=== PATIENT | male | born 1950 | race Caucasian/White ===

== ENCOUNTER 2021-01-19 08:33 | Inpatient (IN) | payer MEDICARE, OTHER ==
[2021-01-19] MEDS ORDERED: Heparin 5,000 UNITS/ML VIAL ONE (09:13)
[2021-01-19] MEDS ORDERED: TICAGRELOR 90 MG TABLET PO SCH (09:30)
[2021-01-19 10:43] VITALS: BMI 29.2
[2021-01-19] MEDS ORDERED: Nitroglycerin 50 MG/250 ML BOT 0 ML ONE (10:54)
[2021-01-19] MEDS ORDERED: Heparin 10,000 UNITS/ 10 ML VIAL ONE ×2 (10:54→13:31)
[2021-01-19] MEDS ORDERED: Adenosine 6 MG/2 ML VIAL ONE (10:55)
[2021-01-19] MEDS ORDERED: Lidocaine 1% (PF) 30 ML VIAL ONE (10:56)
[2021-01-19] MEDS ORDERED: Morphine 4 MG/ML VIAL SLOW IVP SCH (11:00)
[2021-01-19 11:27] LABS: SARS-CoV-2 NAA Rapid Test Not Detected (NotDetected)
[2021-01-19 11:40] LABS: CKMB 172.8 ng/mL (0-6.6)
[2021-01-19] MEDS ORDERED: Fentanyl 100 MCG/2 ML VIAL ONE (12:41)
[2021-01-19] MEDS ORDERED: Midazolam HCl 2 mg/2 ml Vial ONE ×2 (12:42→12:56)
[2021-01-19] MEDS ORDERED: Nitroglycerin 0.4 MG TAB (25 Tab Bottle) SL PRN (12:48)
[2021-01-19] MEDS ORDERED: Senokot S 8.6-50 MG TAB PO PRN (12:48)
[2021-01-19] MEDS ORDERED: Sodium Chloride 0.9% 1,000 ML IV SCH (13:00)
[2021-01-19] MEDS ORDERED: Morphine 4 MG/ML VIAL ONE ×3 (13:01→13:28)
[2021-01-19] MEDS ORDERED: Ondansetron PF 4 MG/2 ML Vial ONE (13:16)
[2021-01-19] MEDS ORDERED: Protamine Sulfate 50 MG/5 ML VIAL ONE (13:50)
[2021-01-19] MEDS: HYDROcodone/Acetaminophen 5/325 mg Tablet PO PRN ×2 (14:14→20:28)
[2021-01-19] MEDS ORDERED: cloNIDine 0.1 MG TAB PO PRN (14:21)
[2021-01-19] MEDS: Sodium Chloride 0.9% 1,000 ML IV SCH (14:57)
[2021-01-19] MEDS ORDERED: Atenolol 25 MG TAB PO SCH (15:00)
[2021-01-19] MEDS: Ondansetron PF 4 MG/2 ML Vial IVP PRN (17:12)
[2021-01-19] MEDS: Morphine 4 MG/ML VIAL SLOW IVP PRN ×2 (17:34→21:20)
[2021-01-19] MEDS: TICAGRELOR 90 MG TABLET PO SCH (21:18)
[2021-01-19] MEDS: Atorvastatin Calcium 40 MG TAB PO SCH (21:19)
[2021-01-19] MEDS: Famotidine/PF 20 mg/2ml Vial SLOW IVP SCH (21:20)
[2021-01-20] MEDS: Sodium Chloride 0.9% 1,000 ML IV SCH (00:10)
[2021-01-20] MEDS ORDERED: Fentanyl 100 MCG/2 ML VIAL SLOW IVP SCH (00:15)
[2021-01-20] MEDS ORDERED: HumaLOG 300 UNITS/3 ML VIAL SC SCH (01:15)
[2021-01-20 03:06] LABS: #Eosinphils 0.1 10x3/uL (0.0-0.5); #Monocytes 1.1 10x3/uL (0.0-1.1); #Neutrophils 11.2 10x3/uL (1.5-8.4); %Basophils 0.3 % (0.0-2.0); %Eosinophils 0.4 % (0.0-6.0); %Lymphocytes 7.9 % (18.0-47.0); %Monocytes 8.1 % (0.0-10.0); %Neutrophils 82.4 % (40.0-75.0); Hemoglobin 12.1 g/dL (13.5-17.5); Mean Corpuscular HGB CONC 34.3 g/dL (32.0-36.0); Mean Corpuscular Hemoglobin 29.7 pg (27.0-33.0); Mean Corpuscular Volume 86.5 fl (81.2-95.1); Mean Platelet Volume 12.6 fl (7.4-10.4); Platelet Count 119 10x3/uL (150-450); RBC Distribution Width 14.2 % (11.5-14.5); Red Blood Cell (RBC) Count 4.08 10x6/uL (4.32-5.72); White Blood Cell (WBC) Count 13.6 10x3/uL (3.5-10.5)
[2021-01-20] MEDS: HYDROcodone/Acetaminophen 5/325 mg Tablet PO PRN ×3 (03:06→19:15)
[2021-01-20] MEDS: Ondansetron PF 4 MG/2 ML Vial IVP PRN ×2 (03:13→13:31)
[2021-01-20 03:21] LABS: ALT (SGPT) 48 U/L (8-55); AST (SGOT) 213 U/L (5-34); Albumin 3.3 g/dL (3.4-4.8); Alkaline Phosphatase 50 U/L (40-110); Anion Gap 15 mmol/L (10-20); BUN (Urea Nitrogen) 21 mg/dL (8.4-25.7); Calc. Creatinine Clearance 69 mL/min (70-130); Calcium 8.2 mg/dL (7.8-10.44); Carbon Dioxide 22 mmol/L (23-31); Chloride 102 mmol/L (98-107); Globulin 2.5 g/dL (2.4-3.5); Glucose 155 mg/dL (80-115); Potassium 4.8 mmol/L (3.5-5.1); Protein, Total 5.8 g/dL (5.8-8.1); Sodium 134 mmol/L (136-145)
[2021-01-20] MEDS: Morphine 4 MG/ML VIAL SLOW IVP PRN ×5 (04:10→23:47)
[2021-01-20] MEDS ORDERED: HYDROmorphone 0.5 MG/0.5 ML SYRINGE SLOW IVP SCH (04:45)
[2021-01-20] MEDS ORDERED: Furosemide 40 MG/4 ML VIAL SLOW IVP SCH ×2 (05:15→16:45)
[2021-01-20] MEDS ORDERED: Amiodarone In Dextrose 200 ML IVPB SCH (06:00)
[2021-01-20] MEDS ORDERED: Amiodarone 150 MG in Dextrose 5% in Water 100 ML IVPB SCH (06:00)
[2021-01-20] MEDS: Aspirin Chewable 81 MG TAB PO SCH (07:59)
[2021-01-20] MEDS: TICAGRELOR 90 MG TABLET PO SCH ×2 (07:59→22:22)
[2021-01-20] MEDS: ALPRAZolam 0.5 MG TAB PO PRN ×3 (07:59→23:50)
[2021-01-20] MEDS: Famotidine/PF 20 mg/2ml Vial SLOW IVP SCH ×2 (07:59→22:22)
[2021-01-20] MEDS: Lisinopril 5 MG TAB PO SCH (10:16)
[2021-01-20] MEDS: Atenolol 25 MG TAB PO SCH ×2 (10:17→18:03)
[2021-01-20 14:40] LABS: Actual Bicarbonate (HCO3v) 20 mEq/L (22-28); Base Excess -4.6 mEq/L (-2.0 to +3.0); Calcium, Ionized (venous) 1.03 mmol/L (1.16-1.32); Chloride (VBG) 99 mmol/L (98-106); Potassium (VBG) 4.09 mmol/L (3.70-5.30); Sodium 126.1 mmol/L (133-146); pH (venous) 7.37 (7.32-7.43)
[2021-01-20] MEDS ORDERED: Haloperidol Lactate 5 MG/ML VIAL SLOW IVP PRN ×2 (14:47→16:40)
[2021-01-20] MEDS ORDERED: Sterile Water 10 ML VIAL FS PRN (17:32)
[2021-01-20] MEDS: Ziprasidone 20 MG VIAL IM PRN ×2 (17:47→22:25)
[2021-01-20] MEDS ORDERED: Atenolol 25 MG TAB PO SCH (18:15)
[2021-01-20] MEDS: Mirtazapine 15 MG TAB PO SCH (22:22)
[2021-01-20] MEDS: Atorvastatin Calcium 40 MG TAB PO SCH (22:22)
[2021-01-20] MEDS: Amiodarone 200 MG TAB PO SCH (22:22)
[2021-01-21] MEDS: HYDROcodone/Acetaminophen 5/325 mg Tablet PO PRN (02:13)
[2021-01-21] MEDS: Ziprasidone 20 MG VIAL IM PRN ×5 (03:49→14:30)
[2021-01-21 05:32] LABS: #Monocytes 0.7 10x3/uL (0.0-1.1); #Neutrophils 10.5 10x3/uL (1.5-8.4); %Basophils 0.2 % (0.0-2.0); %Eosinophils 0.1 % (0.0-6.0); %Lymphocytes 6.2 % (18.0-47.0); %Monocytes 5.9 % (0.0-10.0); %Neutrophils 86.8 % (40.0-75.0); Hemoglobin 12.1 g/dL (13.5-17.5); Mean Corpuscular HGB CONC 35.1 g/dL (32.0-36.0); Mean Corpuscular Hemoglobin 29.1 pg (27.0-33.0); Mean Corpuscular Volume 82.9 fl (81.2-95.1); Mean Platelet Volume 13.2 fl (7.4-10.4); Platelet Count 119 10x3/uL (150-450); RBC Distribution Width 13.8 % (11.5-14.5); Red Blood Cell (RBC) Count 4.16 10x6/uL (4.32-5.72); White Blood Cell (WBC) Count 12.1 10x3/uL (3.5-10.5)
[2021-01-21] MEDS: Morphine 4 MG/ML VIAL SLOW IVP PRN ×2 (05:32→12:19)
[2021-01-21 05:46] LABS: Anion Gap 18 mmol/L (10-20); BUN (Urea Nitrogen) 25 mg/dL (8.4-25.7); Calc. Creatinine Clearance 67 mL/min (70-130); Calcium 9.1 mg/dL (7.8-10.44); Carbon Dioxide 20 mmol/L (23-31); Chloride 102 mmol/L (98-107); Glucose 211 mg/dL (80-115); Sodium 136 mmol/L (136-145)
[2021-01-21] MEDS: TICAGRELOR 90 MG TABLET PO SCH ×2 (09:23→21:36)
[2021-01-21] MEDS: Amiodarone 200 MG TAB PO SCH ×2 (09:23→21:02)
[2021-01-21] MEDS: Famotidine/PF 20 mg/2ml Vial SLOW IVP SCH ×2 (09:23→21:03)
[2021-01-21] MEDS: Atenolol 25 MG TAB PO SCH (09:24)
[2021-01-21] MEDS: Lisinopril 5 MG TAB PO SCH (09:24)
[2021-01-21] MEDS: Aspirin Chewable 81 MG TAB PO SCH (09:24)
[2021-01-21 12:07] LABS: Puncture Site RRA
[2021-01-21] MEDS: Acetaminophen 325 MG TAB PO PRN (12:20)
[2021-01-21] MEDS: ALPRAZolam 0.5 MG TAB PO PRN ×2 (14:08→19:56)
[2021-01-21] MEDS ORDERED: Piperacillin/Tazobactam 3.375 GM in Sodium Chloride 0.9% 100 ML IVPB SCH ×2 (17:00→18:00)
[2021-01-21] MEDS ORDERED: VANCOMYCIN 2 GRAM/400 ML BAG 2 GM in Premix Bag 1 BAG IVPB SCH (19:30)
[2021-01-21] MEDS ORDERED: Vancomycin 1 GM in Premix Bag 1 BAG IVPB SCH (21:00)
[2021-01-21] MEDS: Atorvastatin Calcium 40 MG TAB PO SCH (21:03)
[2021-01-21] MEDS: Mirtazapine 15 MG TAB PO SCH (21:05)
[2021-01-21] MEDS: Piperacillin/Tazobactam 3.375 GM in Sodium Chloride 0.9% 100 ML IVPB SCH (21:57)
[2021-01-22] MEDS: Morphine 4 MG/ML VIAL SLOW IVP PRN (02:37)
[2021-01-22 05:14] LABS: #Monocytes 0.9 10x3/uL (0.0-1.1); #Neutrophils 8.7 10x3/uL (1.5-8.4); %Basophils 0.2 % (0.0-2.0); %Eosinophils 0.4 % (0.0-6.0); %Lymphocytes 4.2 % (18.0-47.0); %Monocytes 8.9 % (0.0-10.0); %Neutrophils 85.4 % (40.0-75.0); Hemoglobin 11.9 g/dL (13.5-17.5); Mean Corpuscular HGB CONC 34.8 g/dL (32.0-36.0); Mean Corpuscular Hemoglobin 29.5 pg (27.0-33.0); Mean Corpuscular Volume 84.7 fl (81.2-95.1); Mean Platelet Volume 13.2 fl (7.4-10.4); Platelet Count 138 10x3/uL (150-450); RBC Distribution Width 13.8 % (11.5-14.5); Red Blood Cell (RBC) Count 4.04 10x6/uL (4.32-5.72); White Blood Cell (WBC) Count 10.1 10x3/uL (3.5-10.5)
[2021-01-22] MEDS: Piperacillin/Tazobactam 3.375 GM in Sodium Chloride 0.9% 100 ML IVPB SCH ×3 (05:14→21:30)
[2021-01-22 05:35] LABS: ALT (SGPT) 36 U/L (8-55); AST (SGOT) 69 U/L (5-34); Albumin 3.1 g/dL (3.4-4.8); Alkaline Phosphatase 53 U/L (40-110); Anion Gap 16 mmol/L (10-20); BUN (Urea Nitrogen) 23 mg/dL (8.4-25.7); Bilirubin, Total 1.6 mg/dL (0.2-1.2); Calc. Creatinine Clearance 75 mL/min (70-130); Calcium 9.1 mg/dL (7.8-10.44); Carbon Dioxide 22 mmol/L (23-31); Chloride 106 mmol/L (98-107); Globulin 2.9 g/dL (2.4-3.5); Glucose 189 mg/dL (80-115); Potassium 4.4 mmol/L (3.5-5.1); Sodium 140 mmol/L (136-145)
[2021-01-22] MEDS: Ziprasidone 20 MG VIAL IM PRN (05:56)
[2021-01-22] MEDS: ALPRAZolam 0.5 MG TAB PO PRN ×2 (05:59→11:50)
[2021-01-22] MEDS: Lisinopril 5 MG TAB PO SCH (09:35)
[2021-01-22] MEDS: Aspirin Chewable 81 MG TAB PO SCH (09:36)
[2021-01-22] MEDS: Amiodarone 200 MG TAB PO SCH ×2 (09:36→21:30)
[2021-01-22] MEDS: TICAGRELOR 90 MG TABLET PO SCH ×2 (09:36→22:45)
[2021-01-22] MEDS: Atenolol 25 MG TAB PO SCH (09:36)
[2021-01-22] MEDS: Famotidine/PF 20 mg/2ml Vial SLOW IVP SCH ×2 (09:36→21:30)
[2021-01-22] MEDS ORDERED: Carvedilol 3.125 MG TAB PO SCH (11:15)
[2021-01-22] MEDS: Vancomycin 1.5 GRAM/300 ML BAG 1.5 GM in Premix Bag 1 BAG IVPB SCH (12:29)
[2021-01-22] MEDS ORDERED: Lorazepam 2 MG/ML VIAL SLOW IVP PRN (12:45)
[2021-01-22] MEDS ORDERED: Morphine 4 MG/ML VIAL SLOW IVP PRN (12:46)
[2021-01-22] MEDS ORDERED: Melatonin 3 MG TAB PO PRN (17:01)
[2021-01-22] MEDS: Carvedilol 3.125 MG TAB PO SCH (19:43)
[2021-01-22] MEDS: Atorvastatin Calcium 40 MG TAB PO SCH (21:30)
[2021-01-22] MEDS: Enoxaparin Sodium 40 MG/0.4 ML SYRINGE SC SCH (22:31)
[2021-01-23] MEDS: Piperacillin/Tazobactam 3.375 GM in Sodium Chloride 0.9% 100 ML IVPB SCH ×3 (07:30→23:49)
[2021-01-23 09:10] LABS: Anion Gap 19 mmol/L (10-20); BUN (Urea Nitrogen) 29 mg/dL (8.4-25.7); Calc. Creatinine Clearance 79 mL/min (70-130); Calcium 8.9 mg/dL (7.8-10.44); Carbon Dioxide 16 mmol/L (23-31); Chloride 111 mmol/L (98-107); Glucose 178 mg/dL (80-115); Potassium 4.1 mmol/L (3.5-5.1); Sodium 142 mmol/L (136-145)
[2021-01-23 09:15] LABS: #Eosinphils 0.3 10x3/uL (0.0-0.5); #Monocytes 0.8 10x3/uL (0.0-1.1); #Neutrophils 5.5 10x3/uL (1.5-8.4); %Basophils 0.3 % (0.0-2.0); %Eosinophils 4.4 % (0.0-6.0); %Lymphocytes 7.9 % (18.0-47.0); %Monocytes 10.8 % (0.0-10.0); %Neutrophils 75.8 % (40.0-75.0); Hemoglobin 11.2 g/dL (13.5-17.5); Mean Corpuscular HGB CONC 34.9 g/dL (32.0-36.0); Mean Corpuscular Hemoglobin 29.2 pg (27.0-33.0); Mean Corpuscular Volume 83.6 fl (81.2-95.1); Mean Platelet Volume 12.8 fl (7.4-10.4); Platelet Count 158 10x3/uL (150-450); RBC Distribution Width 14.1 % (11.5-14.5); Red Blood Cell (RBC) Count 3.84 10x6/uL (4.32-5.72); White Blood Cell (WBC) Count 7.3 10x3/uL (3.5-10.5)
[2021-01-23] MEDS: Famotidine/PF 20 mg/2ml Vial SLOW IVP SCH (09:45)
[2021-01-23] MEDS: TICAGRELOR 90 MG TABLET PO SCH ×2 (09:46→23:50)
[2021-01-23] MEDS: Aspirin Chewable 81 MG TAB PO SCH (09:46)
[2021-01-23] MEDS: Vancomycin 1.5 GRAM/300 ML BAG 1.5 GM in Premix Bag 1 BAG IVPB SCH (09:49)
[2021-01-23] MEDS: Carvedilol 3.125 MG TAB PO SCH (09:53)
[2021-01-23] MEDS: Amiodarone 200 MG TAB PO SCH ×2 (09:56→23:43)
[2021-01-23] MEDS: Atenolol 25 MG TAB PO SCH (09:56)
[2021-01-23] MEDS: Lisinopril 5 MG TAB PO SCH (09:57)
[2021-01-23] MEDS ORDERED: ALPRAZolam 0.25 MG TAB PO PRN (16:13)
[2021-01-23] MEDS: Enoxaparin Sodium 40 MG/0.4 ML SYRINGE SC SCH (23:37)
[2021-01-23] MEDS: Atorvastatin Calcium 40 MG TAB PO SCH (23:43)
[2021-01-24 00:51] LABS: #Eosinphils 0.3 10x3/uL (0.0-0.5); #Monocytes 0.5 10x3/uL (0.0-1.1); #Neutrophils 4.6 10x3/uL (1.5-8.4); %Basophils 0.3 % (0.0-2.0); %Lymphocytes 9.8 % (18.0-47.0); %Monocytes 8.8 % (0.0-10.0); %Neutrophils 75.1 % (40.0-75.0); Hemoglobin 11.2 g/dL (13.5-17.5); Mean Corpuscular HGB CONC 34.8 g/dL (32.0-36.0); Mean Corpuscular Hemoglobin 29.1 pg (27.0-33.0); Mean Corpuscular Volume 83.6 fl (81.2-95.1); Mean Platelet Volume 11.8 fl (7.4-10.4); Platelet Count 182 10x3/uL (150-450); RBC Distribution Width 14.2 % (11.5-14.5); Red Blood Cell (RBC) Count 3.85 10x6/uL (4.32-5.72); White Blood Cell (WBC) Count 6.1 10x3/uL (3.5-10.5)
[2021-01-24 01:02] LABS: Vancomycin, Trough 12.8 ug/mL
[2021-01-24 01:11] LABS: Anion Gap 16 mmol/L (10-20); BUN (Urea Nitrogen) 27 mg/dL (8.4-25.7); Calc. Creatinine Clearance 75 mL/min (70-130); Calcium 8.6 mg/dL (7.8-10.44); Carbon Dioxide 20 mmol/L (23-31); Chloride 110 mmol/L (98-107); Glucose 209 mg/dL (80-115); Potassium 3.5 mmol/L (3.5-5.1); Sodium 142 mmol/L (136-145)
[2021-01-24] MEDS: Piperacillin/Tazobactam 3.375 GM in Sodium Chloride 0.9% 100 ML IVPB SCH ×3 (05:00→20:53)
[2021-01-24] MEDS: Acetaminophen 325 MG TAB PO PRN ×3 (05:58→15:47)
[2021-01-24] MEDS ORDERED: Morphine 2 MG/ML VIAL SLOW IVP PRN (07:15)
[2021-01-24] MEDS: Lisinopril 5 MG TAB PO SCH (08:32)
[2021-01-24] MEDS: Atenolol 25 MG TAB PO SCH (08:32)
[2021-01-24] MEDS: TICAGRELOR 90 MG TABLET PO SCH ×2 (08:32→20:53)
[2021-01-24] MEDS: Aspirin Chewable 81 MG TAB PO SCH (08:32)
[2021-01-24] MEDS: Amiodarone 200 MG TAB PO SCH ×2 (08:32→20:52)
[2021-01-24] MEDS: HYDROcodone/Acetaminophen 5/325 mg Tablet PO PRN ×2 (13:34→17:36)
[2021-01-24 13:54] LABS: CKMB 3.6 ng/mL (0-6.6)
[2021-01-24] MEDS: Enoxaparin Sodium 40 MG/0.4 ML SYRINGE SC SCH (20:52)
[2021-01-24] MEDS: Atorvastatin Calcium 40 MG TAB PO SCH (20:52)
[2021-01-24] MEDS ORDERED: Dextrose 5% in Water 1,000 ML IV PRN (21:15)
[2021-01-24] MEDS ORDERED: Dextrose 50% Abboject 50 ML SYRINGE IVP PRN (21:15)
[2021-01-24] MEDS: HumaLOG 300 UNITS/3 ML VIAL SC PRN (21:57)
[2021-01-25] MEDS: Acetaminophen 325 MG TAB PO PRN ×2 (04:00→11:40)
[2021-01-25] MEDS: Piperacillin/Tazobactam 3.375 GM in Sodium Chloride 0.9% 100 ML IVPB SCH ×3 (05:00→22:00)
[2021-01-25] MEDS ORDERED: traMADol HCl 50 MG TAB PO SCH (06:15)
[2021-01-25 06:36] LABS: Bilirubin 1+ (Negative); Blood, Urine Negative (Negative); Clarity Clear (Clear); Glucose, Urine (Dipstick) 250 mg/dL (Negative); Ketone, Urine 5 mg/dL (Negative); Leukocyte Negative (Negative); Nitrite Negative (Negative); Protein, Urine (Dipstick) 30 mg/dl (Neg-Trace); Specific Gravity, Urine 1.015 (1.002-1.036); Urobilinogen 12 mg/dL (Less than 2); pH, Urine 6.5 (5.0-9.0)
[2021-01-25 06:53] LABS: Bacteria/HPF None Seen HPF (None Seen); RBC/HPF 0-3 HPF (0-3); Squamous Epithelial None Seen HPF (0-3); WBC/HPF 0-3 HPF (0-3)
[2021-01-25 06:55] LABS: Urine Culture Reflex No No
[2021-01-25] MEDS: Aspirin Chewable 81 MG TAB PO SCH (08:30)
[2021-01-25] MEDS: Atenolol 25 MG TAB PO SCH (08:30)
[2021-01-25] MEDS: Lisinopril 5 MG TAB PO SCH (08:30)
[2021-01-25] MEDS: TICAGRELOR 90 MG TABLET PO SCH ×2 (08:31→22:20)
[2021-01-25] MEDS: Amiodarone 200 MG TAB PO SCH ×2 (08:31→22:00)
[2021-01-25] MEDS: HYDROcodone/Acetaminophen 5/325 mg Tablet PO PRN ×2 (10:02→15:05)
[2021-01-25] MEDS: HumaLOG 300 UNITS/3 ML VIAL SC PRN ×2 (12:20→17:23)
[2021-01-25] MEDS: Atorvastatin Calcium 40 MG TAB PO SCH (22:00)
[2021-01-25] MEDS: Enoxaparin Sodium 40 MG/0.4 ML SYRINGE SC SCH (22:00)
[2021-01-26] MEDS: Acetaminophen 325 MG TAB PO PRN (01:20)
[2021-01-26] MEDS: metFORMIN 500 MG TAB PO SCH ×2 (08:17→17:19)
[2021-01-26] MEDS: Lisinopril 5 MG TAB PO SCH (08:17)
[2021-01-26] MEDS: glipiZIDE 5 MG TAB PO SCH ×2 (08:17→17:19)
[2021-01-26] MEDS: Atenolol 25 MG TAB PO SCH (08:17)
[2021-01-26] MEDS: Amiodarone 200 MG TAB PO SCH ×2 (08:17→21:00)
[2021-01-26] MEDS: Aspirin Chewable 81 MG TAB PO SCH (08:18)
[2021-01-26] MEDS: Escitalopram Oxalate 10 mg Tablet PO SCH (08:18)
[2021-01-26] MEDS: TICAGRELOR 90 MG TABLET PO SCH ×2 (08:18→21:00)
[2021-01-26] MEDS: HYDROcodone/Acetaminophen 5/325 mg Tablet PO PRN (09:17)
[2021-01-26] MEDS: HumaLOG 300 UNITS/3 ML VIAL SC PRN (11:07)
[2021-01-26] MEDS: Atorvastatin Calcium 40 MG TAB PO SCH (21:00)
[2021-01-26] MEDS: Enoxaparin Sodium 40 MG/0.4 ML SYRINGE SC SCH (21:00)
[2021-01-27 07:32] VITALS: BP 146/82; TEMP 97.6
[2021-01-27] MEDS: Amiodarone 200 MG TAB PO SCH (08:45)
[2021-01-27] MEDS: Escitalopram Oxalate 10 mg Tablet PO SCH (08:45)
[2021-01-27] MEDS: metFORMIN 500 MG TAB PO SCH (08:45)
[2021-01-27] MEDS: Aspirin Chewable 81 MG TAB PO SCH (08:46)
[2021-01-27] MEDS: TICAGRELOR 90 MG TABLET PO SCH (08:46)
[2021-01-27] MEDS: HYDROcodone/Acetaminophen 5/325 mg Tablet PO PRN (08:46)
[2021-01-27] MEDS: Atenolol 25 MG TAB PO SCH (08:46)
[2021-01-27] MEDS: glipiZIDE 5 MG TAB PO SCH (08:46)
[2021-01-27] MEDS: Lisinopril 5 MG TAB PO SCH (08:46)
== END 2021-01-27 10:32 | disposition home or self-care (01) | DRG 246 ==
LOC: SUATTDRO 08:33 → CSHERS 08:33 → CSHIMCU 10:10 → CSHTELE 01-20 18:23
PROVIDERS: ADMIT Emergency Medicine; ATTEND Internal Medicine
PROC: 4A023N7 Measurement of Cardiac Sampling and Pressure, Left Heart, Percutaneous Approach (ICD-10-PCS; principal; 2021-01-19)
PROC: 027034Z Dilation of Coronary Artery, One Artery with Drug-eluting Intraluminal Device, Percutaneous Approach (ICD-10-PCS; 2021-01-19)
PROC: B2151ZZ Fluoroscopy of Left Heart using Low Osmolar Contrast (ICD-10-PCS; 2021-01-19)
PROC: B2111ZZ Fluoroscopy of Multiple Coronary Arteries using Low Osmolar Contrast (ICD-10-PCS; 2021-01-19)
DX: I97.191 Other postprocedural cardiac functional disturbances following other surgery (principal); I21.19 ST elevation (STEMI) myocardial infarction involving other coronary artery of inferior wall; I50.22 Chronic systolic (congestive) heart failure; I13.0 Hypertensive heart and chronic kidney disease with heart failure and stage 1 through stage 4 chronic kidney disease, or unspecified chronic kidney disease; G93.40 Encephalopathy, unspecified; I25.10 Atherosclerotic heart disease of native coronary artery without angina pectoris; Z95.5 Presence of coronary angioplasty implant and graft; Z96.641 Presence of right artificial hip joint; Z91.018 Allergy to other foods; Z88.8 Allergy status to other drugs, medicaments and biological substances; Z91.048 Other nonmedicinal substance allergy status; E78.2 Mixed hyperlipidemia; E11.22 Type 2 diabetes mellitus with diabetic chronic kidney disease; N18.30 Chronic kidney disease, stage 3 unspecified; E11.42 Type 2 diabetes mellitus with diabetic polyneuropathy; Z87.891 Personal history of nicotine dependence; M48.00 Spinal stenosis, site unspecified; G89.29 Other chronic pain; F41.9 Anxiety disorder, unspecified; I48.0 Paroxysmal atrial fibrillation; Z20.822 Contact with and (suspected) exposure to COVID-19
CPT/HCPCS: 0240U; 36415; 36416; 36600; 71045; 80048; 80053; 80202; 81001; 82140; 82553; 82805; 83735; 83880; 84484; 85025; 85347; 87040; 92928; 92978; 93005; 93010; 93306; 93459; 94760; 96374; 99152; 99153; C1753; C1760; C1874; C1887; C9600; J0153; J0282; J1170; J1630; J1644; J1650; J1815; J1940; J2001; J2250; J2270; J2405; J2543; J2720; J3010; J3370; J3486; J3490; J7070; J7620; S0028